=== PATIENT | male | born 1985 | race Caucasian/White ===

== ENCOUNTER 2016-04-23 19:06 | Emergency (ER) | payer OTHER ==
[2016-04-23] MEDS ORDERED: CLINDAMYCIN 600 MG in DEXTROSE 5% 50 ML IV ONE (20:45)
[2016-04-23] MEDS ORDERED: LIDOCAINE/EPI 1% MDV 20 ML ONE (21:21)
== END 2016-04-23 21:52 | disposition home or self-care (01) ==
LOC: ER 19:06
DX: L02.214 Cutaneous abscess of groin (principal); I10 Essential (primary) hypertension; K21.9 Gastro-esophageal reflux disease without esophagitis
CPT/HCPCS: 36415; 76870; 76882; 80053; 85025; 87071; 87077; 87186; 96365